=== PATIENT | male | born 1945 | race Caucasian/White ===

== ENCOUNTER 2017-04-06 10:06 | Emergency (ER) | payer MEDICARE, BC ==
[2017-04-06 10:24] VITALS: BP 157/81
--- NOTE | 2017-04-06 10:34 | UC ---
Back Pain HPI - HPI Summary HPI Summary: 1 week of right lower back pain seems to come on suddenly and grab hard---when it happens he needs to learn forward and take small steps, he states the only thing that seems to help is rest and time, he does state he will fall occasionally last fall was 1 month ago - History of Current Complaint Chief Complaint: UCBackPain Stated Complaint: LOWER BACK/HIP PAIN Time Seen by Provider: 04/06/17 10:14 Hx Obtained From: Patient Onset/Duration: Sudden Onset, Lasting Hours, Resolved - on its own---not much pain right now Timing: Intermittent, Lasting Hours Severity Initially: Moderate Severity Currently: Mild Pain Intensity: 2 Pain Scale Used: 0-10 Numeric Back Pain: Is Discrete @ - right side of lumbar spine not much radiation in to buttock Character: Aching, Spasmodic, Stiffness Aggravating: Movement Alleviating: Rest Associated Signs And Symptoms: Positive: Negative - Allergies/Home Medications Allergies/Adverse Reactions: Allergies Allergy/AdvReac Type Severity Reaction Status Date / Time No Known Allergies Allergy Verified 04/06/17 10:15 Home Medications: Home Medications Carbidopa/Levodop CR 50/200(*) [Sinemet CR 50/200(*)] 1 tab.cr PO BID 04/06/17 [ History Confirmed 04/06/17] PMH/Surg Hx/FS Hx/Imm Hx Previously Healthy: No - parkinsons disease Endocrine History Of: 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 Cardiovascular History Of: Reports: Hypertension Denies: Pacemaker/ICD Respiratory History Of: Denies: Asthma GI/ History Of: Denies: Renal Disease - Surgical History Surgical History: Yes Surgery Procedure, Year, and Place: 2 ROTATOR CUFF- MICHELLE ; 2 HERNIA SURGERIES; BOWEL RESECTION (DIVERTICULTIS) - Family History Known Family History: Positive: Cardiac Disease - Social History Occupation: Retired Lives: With Family Alcohol Use: None Substance Use Type: None Smoking Status (MU): Never Smoked Tobacco Review of Systems Constitutional: Negative Skin: Negative Eyes: Negative ENT: Negative Respiratory: Negative Cardiovascular: Negative Gastrointestinal: Negative Genitourinary: Negative Motor: Negative, Weakness - chronic r/t Parkinsons Neurovascular: Negative Musculoskeletal: Negative, Arthralgia - right side of lower back Neurological: Negative Psychological: Negative All Other Systems Reviewed And Are Negative: Yes Physical Exam Triage Information Reviewed: Yes Appearance: Well-Nourished, Ill-Appearing - chronic, Pain Distress - mild Vital Signs: Initial Vital Signs Temp 97.7 F 04/06/17 10:19 Pulse 61 04/06/17 10:19 Resp 16 04/06/17 10:19 BP 157/81 04/06/17 10:19 Pulse Ox 97 04/06/17 10:19 Vital Signs Reviewed: Yes Eye Exam: Normal Eyes: Positive: Conjunctiva Clear ENT Exam: Normal ENT: Positive: Normal ENT inspection, Hearing grossly normal. Negative: Nasal congestion, Nasal drainage, Trismus, Muffled/hoarse voice Dental Exam: Normal Neck exam: Normal Neck: Positive: Supple, Nontender, No Lymphadenopathy Respiratory Exam: Normal Respiratory: Positive: Chest non-tender, Lungs clear, Normal breath sounds, No respiratory distress, No accessory muscle use Cardiovascular Exam: Normal Cardiovascular: Positive: RRR, No Murmur, Pulses Normal, Brisk Capillary Refill Abdomen Description: Negative: CVA Tenderness (R), CVA Tenderness (L) Bowel Sounds: Positive: Present Musculoskeletal Exam: Normal Musculoskeletal: Positive: No Edema, Strength Limited @ - chronic r/t Parkinsons , ROM Limited @ - chronic parkinsons Neurological Exam: Normal Neurological: Positive: Alert, Muscle Tone Normal - limited r/t Parkinsons Psychological Exam: Normal Skin Exam: Normal Diagnostics - Radiology No standard instances Xray Interpretation: Positive (See Comments) - Arthritic Changes Radiology Interpretation Completed By: Radiologist Back Pain Course/Dx - Course Course Of Treatment: Mobic, encourage walking and physical therapy (pt refused) , hypertension information DASH Diet follow with PCP - Differential Dx/Diagnosis Differential Diagnosis/HQI/PQRI: Arthritis, Osteomyelitis, Osteoporosis, Strain , Sprain Provider Diagnoses: Right Hip Arthritis, Poorly controlled HYpertension Discharge - Discharge Plan Condition: Stable Disposition: HOME Prescriptions: Meloxicam(NF) [Mobic(NF)] 7.5 mg PO BID PRN #40 tab PRN Reason: Pain Patient Education Materials: Osteoarthritis (ED), DASH Eating Plan (ED), Hypertension (ED) Referrals: Shane Ley MD [Primary Care Provider] - 3 Days
--- NOTE | 2017-04-06 10:54 | RAD ---
HISTORY: Pain, frequent falls, parkinsonism COMPARISONS: None VIEWS: 1, frontal view of the pelvis FINDINGS: BONE DENSITY: Normal. BONES: There is no displaced fracture. JOINTS: There is mild to moderate osteoarthritis of the hips bilaterally ALIGNMENT: There is no dislocation. SOFT TISSUES: Unremarkable. OTHER FINDINGS: Metallic densities are noted overlying the sacrum, possibly postsurgical IMPRESSION: OSTEOARTHRITIS. NO ACUTE OSSEOUS INJURY. IF SYMPTOMS PERSIST, RECOMMEND REPEAT IMAGING.
== END 2017-04-06 11:19 | disposition home or self-care (01) ==
LOC: UCEAST 10:06
DX: M16.11 Unilateral primary osteoarthritis, right hip (principal); M54.5 Low back pain; I10 Essential (primary) hypertension; G20 Parkinson's disease; Z91.81 History of falling
CPT/HCPCS: 72170; 99212; G0463

== ENCOUNTER 2018-04-18 13:39 | Emergency (ER) | payer MEDICARE, BC ==
--- OUTSIDE RECORDS SUMMARY | 2018-04-18 13:50 | XMS REPORT ---
:1945 External Reference #:[id number] Author Organization [facility] Address [address] [place] [id number] Phone [phone] Care Team Providers Name Role Phone Shane Ley MD Care Team Information Otolaryngology Nurse Unavailable Shaen Ley MD Primary Care Physician Unavailable Payers Type Date Identification Numbers Payment Provider Subscriber Medicare Primary Effective: Policy Number: Medicare Francisco Velazquez 2012 [id number] PayID: [id number] [address] [place] [address] Medigap Part B Effective: 2012 Policy Number: [employer] [place] Francisco Velazquez [id number] PayID: [id number] [address] [address] [place] [address] Problems Description No Information Family History Date Family Member(s) Problem(s) Comments Father Heart Disease Mother Unknown Free Text Denies Prostate, Bladder, Kidney Cancer. No family history of kidney stones. Social History Type Date Description Comments Marital Status Patient is Occupation Patient is retired Cigarette Use 04/11/2018 Never Smoked Cigarettes Cigars Never Smoked Cigars Pipe Never Smoked A Pipe ETOH Use Patient denies alcohol use Allergies, Adverse Reactions, Alerts Date Description Reaction Status Severity Comments 10/06/2014 NKDA active Medications Medication Date Status Form Strength Qnty SIG Indications Ordering Provider Simvastatin / Active Tablets 20mg 1 qd Unknown 0000 Nadolol / Active Tablets 40mg 1 qd Unknown 0000 Amitriptyline / Active Tablets 25mg 90tabs 1 po Unknown HCL 0000 Nifedical XL / Active Tablets ER 30mg qd Unknown 0000 24HR Aspirin Low / Active Tablets 81mg daily Unknown Dose 0000 Glimepiride / Active Tablets 1mg Unknown 0000 Polyethylene / Active Powder 3350NF prn Unknown Glycol 3350 0000 Hydrocodone-Darren / Active Tablets 5-325mg Unknown taminophen 0000 Carbidopa-Levod / Active Tablets 25-100mg 1 by mouth Unknown opa 0000 three times a day Viagra 10/12/ Hx Tablets 100mg 18tabs as N52.01 Wild 2014 - directed Irene , 04/10/ M.D. 2018 Viagra 10/12/ Hx Tablets 100mg 6tabs as N52.01 Wild 2014 - directed Irene , 04/10/ M.D. 2018 Ultracet 12/23/ Hx Tablets 37.5-325mg 16tabs one by Wild, 2014 - mouth Irene , 04/10/ 4 M.D. 2018 hours as needed pain Doxycycline 10/08/ Hx Capsules 100mg 28caps 1 po bid 604.90-2 [place] [place] 2012 - Irene , 12/31/ M.D. 2013 Carbidopa/Levod / Hx Tablets ER 50-200mg qhs Unknown opa ER 0000 - 2017 Carbidopa/Levod /00/ Hx Tablets ER 25-100mg 1 tid Unknown opa CR 0000 - 2014 Carbidopa-Levod 00/ Hx Tablets 25-100mg Unknown opa 0000 - 2014 Vital Signs Date Vital Result Comment 04/11/2018 Height 70 inches 5'10" Weight 200.00 lb Weight in kg's 90.720 BMI (Body Mass Index) 28.7 kg/m2 BP Systolic 125 mmHg BP Diastolic 76 mmHg Heart Rate 67 /min 10/10/2016 Height 70 inches 5'10" Weight 190.00 lb Weight in kg's 86.184 BMI (Body Mass Index) 27.3 kg/m2 BP Systolic 125 mmHg right wrist audio BP Diastolic 75 mmHg right wrist audio Heart Rate 71 /min Body Temperature 97.4 F 12/18/2014 Height 70 inches 5'10" Weight 204.00 lb Weight in kg's 92.534 BMI (Body Mass Index) 29.3 kg/m2 BP Systolic 143 mmHg left wrist audio BP Diastolic 90 mmHg left wrist audio Heart Rate 64 /min Body Temperature 97.3 F 10/06/2014 Height 70 inches 5'10" Weight 190.00 lb Weight in kg's 86.184 BMI (Body Mass Index) 27.3 kg/m2 BP Systolic 150 mmHg left wrist audio BP Diastolic 94 mmHg left wrist audio Heart Rate 66 /min Body Temperature 97.2 F 10/08/2013 Weight 190.00 lb Weight in kg's 86.184 BP Systolic 161 mmHg BP Diastolic 85 mmHg Heart Rate 71 /min Body Temperature 97.5 F Results Test Date Test Result H/L Range Note 230 Ua Routine 04/11/2018 Ua Glucose Negative Ua Protein Trace Ua Nitrite Negative Ua Leuko Negative Ua Blood Negative Ua Color Dark yellow Ua Ketones 1+ Ua Clarity Clear Ua Specific Pixley 1.025 1.003-1.030 Ua PH 5.0 5.0-7.5 Ua Bilirubin 1+ Ua Urobilinogen 1.0 E.U./dL 0.0-1.0 Laboratory test finding 04/03/2018 Total Psa Only 0.13 ng/mL 0.00-4.00 Laboratory test finding 04/04/2017 Total Psa Only 0.13 ng/mL 0.00-4.00 230 Ua Routine 04/04/2017 Ua Glucose Negative Ua Protein Negative Ua Nitrite Negative Ua Leuko Negative Ua Blood Negative Ua Color yellow Ua Ketones 1+ Ua Clarity clear Ua Specifici Pixley 1.025 1.003-1.030 Ua PH 5.0 5.0-7.5 Ua Bilirubin Negative Ua Urobilinogen 0.2 E.U./dL 0.0-1.0 Laboratory test finding 10/10/2016 Total Psa Only 0.13 ng/mL 0.00-4.00 Testosterone 493.42 ng/dL 300.00-1000.00 230 Ua Routine 10/10/2016 Ua Glucose 1+ Ua Protein Negative Ua Nitrite Negative Ua Leuko Negative Ua Blood Negative Ua Color yellow Ua Ketones Trace Ua Clarity clear Ua Specifici Pixley 1.025 1.003-1.030 Ua PH 5.0 5.0-7.5 Ua Bilirubin Negative Ua Urobilinogen 0.2 E.U./dL 0.0-1.0 Laboratory test finding 10/12/2015 Total Psa Only 0.16 ng/mL 0.00-4.00 Testosterone 468.89 ng/dL 300.00-1000.00 230 Ua Routine 10/12/2015 Ua Glucose Negative Ua Protein Negative Ua Nitrite Negative Ua Leuko Negative Ua Blood Negative Ua Color yellow Ua Ketones Trace Ua Clarity clear Ua Specific Pixley >=1.030 1.003-1.030 Ua PH 5.0 5.0-7.5 Ua Bilirubin Negative Ua Urobilinogen 0.2 E.U./dL 0.0-1.0 #Ua Routine 04/13/2015 Ua Glucose Trace Ua Protein Negative Ua Nitrite Negative Ua Leuko Negative Ua Blood Negative Ua Color yellow Ua Ketones Trace Ua Clarity clear Ua Specific Pixley >=1.030 1.003-1.030 Ua PH 5.5 5.0-7.5 Ua Bilirubin Negative Ua Urobilinogen 0.2 E.U./dL 0.0-1.0 #Ua Routine 03/09/2015 Ua Glucose Trace Ua Protein Negative Ua Nitrite Negative Ua Leuko Negative Ua Blood Negative Ua Color yellow Ua Ketones Trace Ua Clarity clear Ua Specific Pixley >=1.030 1.003-1.030 Ua PH 5.0 5.0-7.5 Ua Bilirubin Negative Ua Urobilinogen 0.2 E.U./dL 0.0-1.0 #Ua Routine 01/06/2015 Ua Glucose Negative Ua Protein Negative Ua Nitrite Negative Ua Leuko Negative Ua Blood Negative Ua Color yellow Ua Ketones Negative Ua Clarity clear Ua Specific Pixley >=1.030 1.003-1.030 Ua PH 5.5 5.0-7.5 Ua Bilirubin Negative Ua Urobilinogen 0.2 E.U./dL 0.0-1.0 #Ua Routine 12/18/2014 Ua Glucose Trace Ua Protein Negative Ua Nitrite Negative Ua Leuko Negative Ua Blood Negative Ua Color yellow Ua Ketones Negative Ua Clarity clear Ua Specific Pixley 1.020 1.003-1.030 Ua PH 7.0 5.0-7.5 Ua Bilirubin Negative Ua Urobilinogen 0.2 E.U./dL 0.0-1.0 #Ua Routine 10/06/2014 Ua Glucose Trace Ua Protein Negative Ua Nitrite Negative Ua Leuko Negative Ua Blood Negative Ua Color yellow Ua Ketones Negative Ua Clarity clear Ua Specific Pixley >=1.030 1.003-1.030 Ua PH 5.5 5.0-7.5 Ua Bilirubin Negative Ua Urobilinogen 0.2 E.U./dL 0.0-1.0 Urine Microscopic 10/08/2013 Urine WBC 0-2 /HPF Urine RBC 0-2 /HPF Bacteria NEG /HPF Crystals NEG /HPF Epithelial Cells NEG /HPF Sperm NEG /HPF Yeast NEG /HPF #Ua Routine 10/08/2013 Ua Glucose Negative Ua Protein Negative Ua Nitrite Negative Ua Leuko Negative Ua Blood Trace-intact Ua Color tavarez Ua Ketones Negative Ua Clarity clear Ua Specific Pixley 1.015 Ua PH 5.5 Ua Bilirubin Negative Ua Urobilinogen 0.2 E.U./dL Procedures Date CPT Code Description Status 02/10/2017 Colonoscopy Completed 10/10/2016 16470 Bladder Scan, Post Voiding Residual Urine Completed 01/06/2015 93174 Genitalia; Ultrasound, Scrotum And Contents Completed 12/23/2014 35215 Excision Of Hydrocele; Unilateral Completed Encounters Type Date Location Provider CPT E/M Dx Office Visit 04/11/2018 11:30a [facility] [address]645 N43.3 Urology Peter Montanez N52.1 Z12.5 Office Visit 04/10/2017 9:40a [facility] [place], [address] N40.1 M.D. N43.3 N39.41 Office Visit 10/10/2016 8:30a [facility] [place], [address] N40.1 M.D. N43.3 N43.41 N52.01 N39.41 R39.14 Office Visit 10/12/2015 9:40a [facility] [place], [address] N43.3 M.D. N52.01 N40.0 N43.41 Office Visit 04/13/2015 9:40a [facility] [place], [address] 603.9 M.D. 600.01 607.84 608.1 Office Visit 12/18/2014 10:30a [facility] Lizzy [place], [employer]/[place] [address] 603.9 Office Visit 10/06/2014 9:40a [facility] [place], [address] 603.9 M.D. 604.90-2 600.01 607.84 Office Visit 10/08/2013 1:20p [facility] [place] [address] 604.90-2 Inna Palacios 603.9 Plan of Care Future Appointment(s):04/22/2018 10:20 am - Oskar Villarreal MD at [facility] Ioysuah4604/15/2018 8:00 am - [facility] Mqyvzmj4804/11/2018 - Jeyson Montanez,P.A.N43.3 Hydrocele, unspecifiedNew Xrays:US Testicular/ Scrotum/ScrotalComments:Schedule scrotal ultrasound and reevaluate with Dr. bowenN52.1 Erectile dysfunction due to diseases classified elsewhereComments:His persistent erectile dysfunction may overtime caused some penile atrophy and perhaps some shrinking of his penis . And may have to do with his penis. With his fat pad that it has to do with his actual penile length.Z12.5 Encounter for screening for malignant neoplasm of prostateComments:PSA 0.13. Consistent with what it was last year. Exam benign. Follow-up 12 months.
[2018-04-18 14:08] VITALS: BP 141/82
--- NOTE | 2018-04-18 14:52 | UC ---
Knee Pain HPI - HPI Summary HPI Summary: 72 yo male with hx of Parkisons Disease presents with right knee pain He was lifting his right leg to go up stairs and had the sudden onset of lateral right knee pain Now with pain with wt bearing/lifting and bending leg sometimes feels as it will buckle no swelling - History of Current Complaint Chief Complaint: UCLowerExtremity Stated Complaint: RIGHT KNEE PAIN Hx Obtained From: Patient Onset/Duration: Sudden Onset, Lasting Hours Severity Initially: Severe Severity Currently: Mild Pain Intensity: 2 Pain Scale Used: 0-10 Numeric Character: Sharp Aggravating Factor(s): Movement, Stairs Alleviating Factor(s): Rest Associated Signs And Symptoms: Positive: Negative Able to Bear Weight: Yes - Allergies/Home Medications Allergies/Adverse Reactions: Allergies Allergy/AdvReac Type Severity Reaction Status Date / Time No Known Allergies Allergy Verified 04/18/18 14:07 PMH/Surg Hx/FS Hx/Imm Hx Endocrine History: Diabetes, Dyslipidemia Cardiovascular History: Hypertension Other Neurological History: Parkinson's Disease - Surgical History Surgical History: Yes Surgery Procedure, Year, and Place: 2 ROTATOR CUFF- MICHELLE ; 2 HERNIA SURGERIES; BOWEL RESECTION (DIVERTICULTIS) - Family History Known Family History: Positive: Cardiac Disease - Social History Alcohol Use: None Substance Use Type: None Smoking Status (MU): Never Smoked Tobacco Review of Systems Constitutional: Negative Skin: Negative Eyes: Negative ENT: Negative Respiratory: Negative Cardiovascular: Negative Gastrointestinal: Negative Genitourinary: Negative Motor: Negative Neurovascular: Negative Musculoskeletal: Arthralgia Neurological: Other - complaints c/w his neurologic illness Psychological: Negative Is Patient Immunocompromised?: No All Other Systems Reviewed And Are Negative: Yes Physical Exam Triage Information Reviewed: Yes Appearance: Well-Appearing, No Pain Distress, Well-Nourished Vital Signs: Initial Vital Signs Temp 97.2 F 04/18/18 14:03 Pulse 64 04/18/18 14:03 Resp 12 04/18/18 14:03 BP 141/82 04/18/18 14:03 Pulse Ox 97 04/18/18 14:03 Eyes: Positive: Conjunctiva Clear ENT: Positive: Hearing grossly normal, Other - Parkinson's facies. Negative: Nasal congestion, Nasal drainage, Trismus, Muffled voice, Hoarse voice Neck: Positive: Supple, Nontender, No Lymphadenopathy Respiratory: Positive: Lungs clear, Normal breath sounds, No respiratory distress, No accessory muscle use Cardiovascular: Positive: RRR, No Murmur, Pulses Normal Musculoskeletal: Positive: No Edema Neurological: Positive: Alert, Other: - stigmata of Parkinson's Skin Exam: Normal Diagnostics - Radiology No standard instances Xray Interpretation: No Acute Changes Radiology Interpretation Completed By: Radiologist Knee Pain Course/Dx - Differential Dx/Diagnosis Provider Diagnoses: Right knee injury. suspect sprain Discharge - Sign-Out/Discharge Documenting (check all that apply): Discharge/Admit/Transfer - Discharge Plan Condition: Stable Disposition: HOME Patient Education Materials: Knee Pain (ED), Knee Immobilizer (ED) Referrals: Shane Ley MD [Primary Care Provider] - - Billing Disposition and Condition Condition: STABLE Disposition: Home
--- NOTE | 2018-04-18 14:53 | RAD ---
Indication: Right knee pain. 4 views of the right knee demonstrates joint space to be well preserved. Pedicles appear intact. No significant joint effusion is noted. IMPRESSION: No fracture of the right knee is noted.
== END 2018-04-18 15:05 | disposition home or self-care (01) ==
LOC: UCEAST 13:39
DX: S89.91XA Unspecified injury of right lower leg, initial encounter (principal); X58.XXXA Exposure to other specified factors, initial encounter; Y93.89 Activity, other specified; Y92.9 Unspecified place or not applicable; E11.9 Type 2 diabetes mellitus without complications; Z79.84 Long term (current) use of oral hypoglycemic drugs; E78.5 Hyperlipidemia, unspecified; I10 Essential (primary) hypertension; G20 Parkinson's disease; Z82.49 Family history of ischemic heart disease and other diseases of the circulatory system
CPT/HCPCS: 99213; G0463

== ENCOUNTER 2019-12-17 14:44 | Emergency (ER) | payer MEDICARE, BC ==
[2019-12-17 15:09] VITALS: BP 162/86
--- NOTE | 2019-12-17 15:25 | UC ---
Cardiac HPI - HPI Summary HPI Summary: 74-year-old male comes in with a chief complaint of right sided chest pain. Patient has Parkinson's any falls often. 2 days ago he fell into a wood pile and struck the right lower side of his chest and he said pain there ever since. Pain is worse with taking a deep breath and movement. Does not feel short of breath at rest. Denies any abdominal pain. Reports normal urination and normal bowels. - History of Current Complaint Chief Complaint: UCTrauma Stated Complaint: RIB INJURY Time Seen by Provider: 12/17/19 15:07 Pain Intensity: 10 - Allergy/Home Medications Allergies/Adverse Reactions: Allergies Allergy/AdvReac Type Severity Reaction Status Date / Time No Known Allergies Allergy Verified 12/17/19 14:53 Home Medications: Home Medications Ascorbic Acid [Vitamin C] 1 tab PO DAILY 12/17/19 [History Confirmed 12/17/19] Carbidopa 25 mg PO TID 12/17/19 [History Confirmed 12/17/19] Fenofibrate(NF) [Tricor(NF)] 1 tab PO DAILY 12/17/19 [History Confirmed 12/17/19 ] PMH/Surg Hx/FS Hx/Imm Hx Previously Healthy: Yes Endocrine History: Diabetes, Dyslipidemia Cardiovascular History: Hypertension Other Neurological History: parkinsons - Surgical History Surgical History: Yes Surgery Procedure, Year, and Place: 2 ROTATOR CUFF- MICHELLE ; 2 HERNIA SURGERIES; BOWEL RESECTION (DIVERTICULTIS) - Family History Known Family History: Positive: Cardiac Disease - Social History Alcohol Use: None Substance Use Type: None Smoking Status (MU): Never Smoked Tobacco Review of Systems All Other Systems Reviewed And Are Negative: Yes Constitutional: Positive: Negative Skin: Positive: Negative Eyes: Positive: Negative ENT: Positive: Negative Respiratory: Positive: Other - see hpi Cardiovascular: Positive: Chest Pain, Other - see hpi Gastrointestinal: Positive: Negative Genitourinary: Positive: Negative Motor: Positive: Negative Neurovascular: Positive: Negative Musculoskeletal: Positive: Other: - see hpi Neurological: Positive: Other - parkinson's Psychological: Positive: Negative Is Patient Immunocompromised?: No Physical Exam Triage Information Reviewed: Yes Appearance: Well-Appearing, Well-Nourished, Pain Distress - mild with movement and exam of rt lower ribs Vital Signs: Initial Vital Signs Temp 96.3 F 12/17/19 14:49 Pulse 61 12/17/19 14:49 Resp 18 12/17/19 14:49 BP 162/86 12/17/19 14:49 Pulse Ox 97 12/17/19 14:49 Eye Exam: Normal Eyes: Positive: Conjunctiva Clear Neck: Positive: Supple Respiratory: Positive: Lungs clear, Normal breath sounds, No respiratory distress, Other: - Point tender to palpation over the ribs and the right lower lateral aspect of the chest. Cardiovascular: Positive: RRR Abdomen Description: Positive: Nontender - Abdomen is nontender to palpation., Soft Bowel Sounds: Positive: Present Musculoskeletal: Positive: Strength Intact, ROM Intact Neurological: Positive: Alert, Other: - Patient has Parkinson's Psychological: Positive: Age Appropriate Behavior Skin Exam: Normal - Assessment/Plan Course Of Treatment: Cpc Coder: Zach Jurado Daniel ([id number]) Advisor To Command In Combat: HOMERO ( NUANCE) Report Date: 12/17/2019 15:40:00 Report Status: Final ====== Start of Report Content Patient Name: MARGRET ANDERSON Medical Record#: [id number] Ordering Physician: Raj Squires MD Acct.#: [id number] : 10/1945 Age: 74 Sex: M Location: [facility] Exam Date: 12/17/19 1510 ADM Status: REG ER Order Information: RIBS RT UNI W/PA CH MIN 3 VWS Accession Number: [id number] CPT: 65452 HISTORY: pain rt side s/p fall COMPARISONS: September 13, 2015 VIEWS: 6, Frontal view of the chest with frontal and oblique views of the right hemithorax. FINDINGS: There are questionable nondisplaced fractures of the anterior aspect of the right seventh and eighth ribs. There is no appreciable pneumothorax. There is postsurgical change to the right shoulder. IMPRESSION: QUESTIONABLE NONDISPLACED FRACTURES OF THE RIGHT SEVENTH AND EIGHTH RIBS WITHOUT APPRECIABLE PNEUMOTHORAX. <Electronically signed by Zach Jurado MD in OV> 12/17/191535 Dictated By: Zach Jurado MD Dictated Date /Time: 12/17/191534 Transcribed Date/Time: 12/17/191534 Copy to: CC:Shane Ley MD; Raj Squires MD Imaging - [facility] Imaging - [facility] Imaging - [facility] [address] [facility] [address] [address] ph ) ph ([phone]) ph ([phone]) End of Report Content I discussed the x-rays with the patient and his . Plan is ibuprofen and/or acetaminophen. Can use Vicodin if needed. Patient went home with incentive spirometer. To follow-up with his primary care doctor. And a get reevaluated if worse or any questions or concerns. I did discuss that he had sugar in his urine. - Clinical Impression Provider Diagnosis: Multiple fractures of ribs, right side, initial encounter for closed fracture, Glucose found in urine on examination Discharge ED - Sign-Out/Discharge Documenting (check all that apply): Patient Departure All imaging exams completed and their final reports reviewed: No Studies - Discharge Plan Condition: Stable Disposition: HOME Patient Education Materials: Rib Fracture (ED) Referrals: Shane Ley MD [Primary Care Provider] - Additional Instructions: FOLLOW UP WITH YOUR DOCTOR FOR YOUR RIB FRACTURES AND THE GLUCOSE IN YOUR URINE. GET REEVALUATED SOONER IF NOT IMPROVED OR WORSE; PAIN, SHORTNESS OF BREATH, FEVER, SIGNS OF INFECTION, YOU FEEL ILL OR ANY QUESTIONS OR CONCERNS. USE THE INCENTIVE SPIROMETER EVERY 4 HOURS OR MORE FREQUENTLY TO HELP AVOID A RESPIRATORY INFECTION. - Billing Disposition and Condition Condition: STABLE Disposition: Home
== END 2019-12-17 16:05 | disposition home or self-care (01) ==
LOC: UCEAST 14:44
DX: S22.41XA Multiple fractures of ribs, right side, initial encounter for closed fracture (principal); E11.9 Type 2 diabetes mellitus without complications; I10 Essential (primary) hypertension; G20 Parkinson's disease; R81 Glycosuria; W18.30XA Fall on same level, unspecified, initial encounter; Y92.9 Unspecified place or not applicable; Z79.899 Other long term (current) drug therapy
CPT/HCPCS: 81003; 99212; G0463

== ENCOUNTER 2021-01-26 16:03 | Inpatient (IN) ==
[2021-01-26 17:41] LABS: Urine Appearance Clear; Urine Bilirubin Negative (Negative); Urine Blood Negative (Negative); Urine Color Yellow; Urine Glucose 1+(50 mg/dL) (Negative); Urine Ketones Negative (Negative); Urine Nitrite Negative (Negative); Urine Protein Negative (Negative); Urine Specific Gravity 1.021 (1.010-1.030); Urine Urobilinogen Negative (Negative)
[2021-01-26 17:42] LABS: ABS Basophils 0.1 10^3/ul (0-0.2); ABS Eosinophils 0.1 10^3/ul (0-0.6); ABS Lymphocytes 2.5 10^3/ul (1.0-4.8); ABS Monocytes 1.1 10^3/ul (0-0.8); ABS Neutrophils 4.8 10^3/ul (1.5-7.7); Eosinophil % 1.1 %; Hematocrit 42 % (42-52); Hemoglobin 14.8 g/dL (14.0-18.0); Lymphocyte % 29.1 %; Mean Corpuscular HGB Conc 35 g/dL (31-36); Mean Corpuscular Hemoglobin 36 pg (27-31); Mean Corpuscular Volume 102 fL (80-94); Mean Platelet Volume 7.6 fL (7.4-10.4); Nucleated Red Blood Cells % 0.1; Platelet Count 253 10^3/uL (150-450); Red Blood Count 4.12 10^6 /uL (4.18-5.48); Red Cell Distribution Width 13 % (10-15); White Blood Count 8.5 10^3/uL (3.5-10.8)
[2021-01-26 17:53] LABS: ALT 25 U/L (7-52); AST 23 U/L (13-39); Albumin 4.4 g/dL (3.2-5.2); Albumin/Globulin Ratio 1.8 (1-3); Alkaline Phosphatase 67 U/L (34-104); Anion Gap 8 mmol/L (2-11); BUN/Creatinine Ratio 35.4 (8-20); Blood Urea Nitrogen 40 mg/dL (6-24); CO2 Carbon Dioxide 24 mmol/L (22-32); Calcium 9.3 mg/dL (8.6-10.3); Chloride 106 mmol/L (101-111); Creatine Kinase 187 U/L (10-223); EGFR Non-African American 63.6 (>60); Globulin 2.5 g/dL (2-4); Glucose 128 mg/dL (70-100); Magnesium 2.3 mg/dL (1.9-2.7); Potassium 3.8 mmol/L (3.5-5.0); Sodium 138 mmol/L (135-145); Total Protein 6.9 g/dL (6.4-8.9); Troponin I 0.01 ng/mL (<0.03)
[2021-01-26 17:58] LABS: Acetaminophen < 15 mcg/mL; Alcohol, S < 10 mg/dL (<10); Salicylate < 2.50 mg/dL (<30)
[2021-01-26] MEDS ORDERED: NS 0.9% 500 ml BAG 500 ML IV ONE (18:01)
[2021-01-26 18:07] LABS: TSH Ultra Thyroid Stim Horm 1.94 mcIU/mL (0.34-5.60)
[2021-01-26 19:43] LABS: Vitamin B12 220 pg/mL (180-914)
[2021-01-26 20:08] LABS: C Reactive Protein 1.77 mg/L (<8.01)
[2021-01-26] MEDS ORDERED: Cyanocobalamin INJ 1,000 MCG/ML VIAL 1 ML VIAL IM ONE (22:14)
[2021-01-27] MEDS ORDERED: Polyethylene Glycol 3350 17 GM PACKET PO PRN (00:26)
[2021-01-27] MEDS: Carbidopa/Levodop 25/100 MG TAB PO SCH ×4 (01:16→20:52)
[2021-01-27] MEDS: Aspirin EC 81 mg TAB.EC (enteric coated) PO SCH ×2 (01:17→20:51)
[2021-01-27] MEDS: Carbidopa/Levodop CR 50/200 TAB.CR PO SCH ×3 (01:17→20:50)
[2021-01-27] MEDS: Enoxaparin 40 MG/0.4 ML SYR SUBCUT SCH ×2 (01:18→20:49)
[2021-01-27] MEDS ORDERED: Dextrose 50% Syringe 50 ml 25 GM/50 ML SYRINGE IV PUSH PRN (01:27)
[2021-01-27] MEDS: Lactulose 30 ml UDC PO ONE ×3 (05:46→06:28)
[2021-01-27 06:35] LABS: ABS Basophils 0.1 10^3/ul (0-0.2); ABS Eosinophils 0.1 10^3/ul (0-0.6); ABS Lymphocytes 1.9 10^3/ul (1.0-4.8); ABS Monocytes 1.1 10^3/ul (0-0.8); ABS Neutrophils 5.3 10^3/ul (1.5-7.7); Eosinophil % 1.2 %; Hematocrit 40 % (42-52); Hemoglobin 13.6 g/dL (14.0-18.0); Lymphocyte % 22.5 %; Mean Corpuscular HGB Conc 34 g/dL (31-36); Mean Corpuscular Hemoglobin 35 pg (27-31); Mean Corpuscular Volume 103 fL (80-94); Mean Platelet Volume 7.6 fL (7.4-10.4); Platelet Count 204 10^3/uL (150-450); Red Blood Count 3.86 10^6 /uL (4.18-5.48); Red Cell Distribution Width 13 % (10-15); White Blood Count 8.4 10^3/uL (3.5-10.8)
[2021-01-27 06:47] LABS: BUN/Creatinine Ratio 40.7 (8-20); Calcium 8.9 mg/dL (8.6-10.3); EGFR African American 105.5 (>60); EGFR Non-African American 87.2 (>60)
[2021-01-27] MEDS: Multivitamins/Minerals TAB PO SCH (07:50)
[2021-01-27] MEDS: CARBIDOPA 25 MG PO SCH ×3 (07:52→20:52)
[2021-01-27] MEDS ORDERED: CMCS: Glimepiride 2 mg TAB (NF) PO SCH (09:00)
[2021-01-27] MEDS ORDERED: Lactulose 30 ml UDC PO ONE (09:00)
[2021-01-27] MEDS ORDERED: CMCS: Simvastatin 20 mg TAB (NF) PO SCH (22:00)
[2021-01-28] MEDS: Carbidopa/Levodop 25/100 MG TAB PO SCH ×2 (09:53→14:11)
[2021-01-28] MEDS: Multivitamins/Minerals TAB PO SCH (09:54)
[2021-01-28] MEDS: Carbidopa/Levodop CR 50/200 TAB.CR PO SCH (09:54)
[2021-01-28] MEDS: CARBIDOPA 25 MG PO SCH ×2 (09:57→14:11)
[2021-01-28 13:09] VITALS: BP 126/59
== END 2021-01-28 15:25 | disposition home health service (06) | DRG 57 ==
LOC: ED 16:03 → MED 21:13
PROVIDERS: ADMIT Internal Medicine; ATTEND Pediatrics